=== PATIENT | male | born 1980 | race Caucasian/White ===

== ENCOUNTER 2019-05-27 09:59 | Emergency (ER) | payer OTHER, SELFPAY ==
[2019-05-27 10:01] VITALS: BP 141/85; PULSE 104; RESP 17; TEMP 37.2; O2SAT 99; BMI 21.4
--- NOTE | 2019-05-27 10:06 | NURSING ---
NO OLD EKGS
--- NOTE | 2019-05-27 10:19 | RAD_ITS ---
STUDY: X-RAY CHEST REASON FOR EXAM: Male, 38 years old. COUGH TECHNIQUE: Single AP portable view of the chest. COMPARISON: None. FINDINGS: EKG electrodes are seen. The lungs are clear and expanded. There is no demonstrated pleural abnormality. Normal size heart. Normal mediastinum and leesa. Normal visualized pulmonary arteries. Normal visualized aortic arch and descending thoracic aorta. Normal visualized thoracic spine. Normal visualized ribs, clavicles, and shoulders. There is no demonstrated abnormality of the visualized soft tissue structures of the upper abdomen. RAD/Chest 1 View (Portable) IMPRESSION: Normal x-ray examination of the chest. Electronically Signed: Mark Figueroa, at 10:47 EDT , Service support ,
--- NOTE | 2019-05-27 10:19 | EKG12_ITS ---
Test Reason : SYNCOPE Blood Pressure : / mmHG Vent. Rate : 077 BPM Atrial Rate : 077 BPM P-R Int : 116 ms QRS Dur : 092 ms QT Int : 404 ms P-R-T Axes : 050 062 053 degrees QTc Int : 457 ms Normal sinus rhythm Normal ECG Confirmed by ANGELA DUPREE, CICI ([id number]), assistant film editor THAO CARRINGTON ([id number]) on 05/29/2019 9:34:51 AM Referred By: MARIUSZ Confirmed By:CICI MILLER MD
--- NOTE | 2019-05-27 10:21 | ED.VIS.GEN ---
History of Present Illness Chief Complaint: Syncope Informant: Patient Onset: Today Current Severity: Moderate Maximum Severity: Moderate Narrative: Patient presents with near syncope. Chief complaints of syncope however patient never passed out. He felt lightheaded when he got up this morning and on the way to work he became a lot more lightheaded he felt like he was going to pass out but he did not. No chest pain or shortness of breath the denies hyperventilating denies any paresthesias. He is no nausea or vomiting. He has no headache, he has no disequilibrium double vision or any vision changes. He has no confusion or speech difficulties. His symptoms significantly improve when he lays down. Past Medical History - Allergies and Home Meds Allergies/Adverse Reactions: Allergies No Known Allergies Allergy (Verified 05/27/19 10:01) Primary Care Physician: Leon[facility] Doctor,Out of [NON-STAFF] - Past Medical History: None Smoking Status: Current every day smoker Alcohol: Occasional Drugs: - - He admits to a few beers every night to relax. Review of Systems All systems negative except as indicated General: Reports: - - Orthostatic lightheadedness as in HPI. Denies: Fever Eyes: Denies: Visual changes - bilaterally ENT: Denies: Rhinorrhea, Sore throat Cardiovascular: Reports: Heart racing. Denies: Chest pain, Palpitations Respiratory: Denies: Dyspnea, Cough, Sputum Gastrointestinal: Denies: Abdominal pain, Nausea, Vomiting Genitourinary: Denies: Dysuria Musculoskeletal: Denies: Myalgias Skin: Denies: Rash Neurological: Denies: Headache, Weakness, Parasthesia, Numbness Psych: Denies: Depression, Anxiety Endocrine: Denies: Polyuria, Polydipsia Physical Exam Vital Signs/Narrative: Vital Signs Temp Pulse Resp BP Pulse Ox 05/27/19 10:01 98.9 F 104 H 17 141/85 H 99 General: Well nourished, Well developed, No Acute Distress Head: Normocephalic ENT: Dry mucous membranes Neck: Supple Cardiovascular: Regular rate, Regular rhythm Respiratory: No distress, CTA bilaterally Abdomen: Soft, Nontender Back: Nontender, Normal Inspection Extremities: Nontender, No edema Skin: Normal color Neurological: Alert, Oriented x3 Psychological: Normal affect Diagnostic/Tx/Re-eval - Rhythm Strip Rhythm Strip: Sinus Rhythm Rate: 77 Ectopy: None - EKG Initial EKG Interpretation: - - Normal sinus rhythm with a rate of 77. Normal NC and QTc intervals. No ischemic changes Interpreted by emergency doctor - Medical Decision Making I did orthostatic vital signs myself, his pressure dropped slightly with standing up however his heart rate went from 80-120. He has dry mucous membranes, this is consistent with dehydration a liter fluids was given. I also gave him some Vistaril because he appears anxious. He has a normal work-up was hydrated and will be discharged in stable condition. ED Disposition - Plan for ED Patient: Disposition: Home or Assisted Living Diagnosis: Dehydration, Anxiety Instructions: ED Dehydration Adult, ED Hypotension Orthostatic, Understanding Anxiety Disorders Prescriptions: hydrOXYzine pamoate capsule [Vistaril] 50 mg PO TID PRN PRN #30 cap PRN Reason: Anxiety Prescription Printed Referrals: [facility] Doctor,Out of [NON-STAFF] - 3-5 Days
[2019-05-27] MEDS: 0.9% Normal Saline 1,000 ML 1000 ML IV (10:35)
[2019-05-27 10:39] LABS: Absolute Lymphocyte Count 0.99 X10^3/uL (0.83-4.51); Absolute Neutrophil Count 6.3 X10^3/uL (2.0-7.7); Basophil# 0.09 X10^3/uL; Basophil% 1.1 % (0-1); Eosinophil# 0.01 X10^3/uL; Eosinophils% 0.1 % (0-5); Hematocrit 44.8 % (40-54); Hemoglobin 16.1 g/dL (13.0-16.5); Lymphocyte # 0.99 X10^3/ul (4.0); Lymphocyte % 12.4 % (19-41); Mean Corp Hgb Conc 35.9 g/dL (32-36); Mean Corpuscular Hgb 35.6 pg (27.0-32.0); Mean Corpuscular Volume 99.1 fL (80-94); Mean Platelet Vol. 9.1 fl (6.2-12.0); Monocyte# 0.61 X10^3/uL; Monocyte% 7.6 % (0-10); NRBC Flagged by Analyzer 0 % (0-5); Neutrophil # 6.26 X10^3/uL (2.7-7.7); Neutrophil % 78.5 % (47-70); Platelet Count 201 K/mm3 (150-450); RBC Distribution Width CV 11.9 % (11.6-14.6); RBC Distribution Width SD 43.8 fl (35.1-43.9); Red Blood Count 4.52 M/mm3 (4.6-6.2)
[2019-05-27 10:57] LABS: ALB/GLOB Ratio 1.4 RATIO (0.9-2.4); AST(SGOT) 72 U/L (15-37); Alanine Aminotransfer ALT/SGPT 63 U/L (16-61); Albumin, Serum 4.7 g/dL (3.2-5.0); Alkaline Phosphatase 58 U/L (45-117); Anion Gap 13 (5-15); BUN 11 mg/dL (7-18); BUN/Creat Ratio 14.2 RATIO (10-20); Calcium,Total 9.2 mg/dL (8.5-10.1); Chloride 105 mmol/L (98-107); Creatinine, Serum 0.78 mg/dL (0.70-1.30); EST Glomerular Filtration Rate 119 mL/min (>60); Est Glom Filt Rate - Afr Amer 144 mL/min (>60); Estimated Creatinine Clearance 114.08 ml/min; Globulin 3.4 g/dL (2.2-4.2); Glucose 83 mg/dL (74-106); Potassium 4.2 mmol/L (3.5-5.1); Protein, Total 8.1 g/dL (6.4-8.2); Sodium Level 139 mmol/L (136-145)
[2019-05-27] MEDS: hydrOXYzine 50 MG/ML Vial IM (11:22)
== END 2019-05-27 11:43 | disposition home or self-care (01) ==
PROVIDERS: Emergency Provider Emergency Medicine
DX: E86.0 Dehydration (principal); F41.9 Anxiety disorder, unspecified; F17.200 Nicotine dependence, unspecified, uncomplicated
CPT/HCPCS: 71045; 80053; 84484; 85025; 93005; 96360; 96372; 99283